=== PATIENT | male | born 1990 | race Caucasian/White ===

== ENCOUNTER 2021-09-13 13:21 | Inpatient (IN) | payer MEDICAID, OTHER, SELFPAY ==
--- NOTE | ~2021-09-13 | CT_ITS ---
EXAMINATION: CT HEAD WITHOUT CONTRAST CLINICAL INFORMATION: New onset psychosis. COMPARISON: None TECHNIQUE: Contiguous axial imaging was performed from the skull base to vertex without intravenous administration of contrast. This CT examination was performed using dose optimization techniques as appropriate, variously including the following: *Automated exposure control *Adjustment of mA and/or kV according to patient size (this includes techniques or standardized protocols for targeted exams where dose is matched to indication/reason for exam; i.e. extremities or head) *Use of iterative reconstruction technique DLP: 929 mGy-cm FINDINGS: There is no evidence of acute intracranial hemorrhage or territorial infarction. No abnormal mass effect or midline shift is seen. Lopez to white matter differentiation is well preserved. No extra-axial fluid collections are identified. The ventricles are normal in size. There is no abnormal attenuation within the brain parenchyma. The osseous structures and soft tissues are normal. Mucus retention cyst present within the left maxillary sinus. Remainder of the paranasal sinuses are clear. Mastoid air cells are pneumatized. CT/CT head/brain wo con IMPRESSION: No acute intracranial pathology.
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
[2021-09-13 13:44] VITALS: BP 137/77; PULSE 88; RESP 18; TEMP 36.6; O2SAT 100; BMI 21.0
[2021-09-13 14:52] LABS: MANUAL DIFF FLAG NO
[2021-09-13 14:58] LABS: Basophils Percent Auto 0.3 % (0-2); Eosinophils Percent Auto 0.1 % (0-4); Hematocrit 42.9 % (42.0-52.0); Hemoglobin 14.3 g/dl (14.0-18.0); Imm Gran Abs Auto 0.02 X10*3/uL (0.00-0.03); Imm Gran Pct Auto 0.2 % (0.0-0.4); Lymphocytes Absolute Auto 1.8 X10*3/uL (1.2-4.9); Lymphocytes Percent Auto 18.3 % (20-40); Mean Corpuscular HGB Conc 33.3 g/dl (31.0-36.0); Mean Corpuscular Hemoglobin 29.2 pg (27.0-33.0); Mean Corpuscular Volume 87.7 fL (80.0-98.0); Mean Platelet Volume 10.8 fL (9.4-12.4); Monocytes Absolute Auto 0.7 X10*3/uL (0.1-1.2); Monocytes Percent Auto 6.5 % (2-11); Neutrophils Absolute Auto 7.5 x10*3/uL (2.0-8.3); Neutrophils Percent Auto 74.6 % (45-73); Platelet Count 367 X10*3/uL (160-400); Red Blood Count 4.89 X10*6/uL (4.60-5.80); Red Cell Distribution Width 12.5 % (11.0-16.0)
[2021-09-13 15:06] LABS: Ethanol < 10 mg/dL
[2021-09-13 15:08] LABS: Alanine Aminotransferase 17 U/L (0-40); Albumin Level 4.9 g/dL (3.5-5.0); Alkaline Phosphatase 60 U/L (39-117); Anion Gap 15 (12-20); Aspartate Amino Transferase 19 U/L (5-37); Bilirubin Direct 0.4 mg/dL (0.0-0.5); Blood Urea Nitrogen 8 mg/dL (9-16); Calcium 9.6 mg/dL (8.4-10.2); Carbon Dioxide 24 mmol/L (22-29); Chloride 107 mmol/L (96-108); Creatinine Clr Calc Pharmacy 104.5; Estimated Glomerular Filt Rate > 60; Glucose Random 109 mg/dL (60-115); Magnesium 2.2 mg/dL (1.6-2.6); Potassium 4.1 mmol/L (3.3-5.1); Sodium 142 mmol/L (135-145); Total Protein 7.7 g/dL (6.5-8.0)
[2021-09-13 15:09] LABS: COVID-19 Test Negative (Negative); IDNOW Serial# 16C4AD1C
--- NOTE | 2021-09-13 16:01 | PC.NURSE ---
pt is blinking and opening eyes to verbal and tactile stimuli, but is not verbally responding to questions. vss, pt resting quietly in bed. phone call from mother looking to speak to pt. asked pt if we had permission to speak with her, but pt declined to answer. took down contact information for mother.
[2021-09-13 16:02] VITALS: BP 129/73; PULSE 105; RESP 18; TEMP 36.9; O2SAT 98
--- NOTE | 2021-09-13 16:50 | PC.NURSE ---
pt spoke w HERI pt reports auditory hallucinations, but declines to tell us what the voices are saying, paranoid, denies SI/HI. spoke briefly w Amador (uncle) on the phone, but Amador was unable to find out anymore information. pt continues to shut down and become selectively mute. pt reports that he wants his belongings and wants to go home.
--- NOTE | 2021-09-13 17:13 | PC.NURSE ---
pt pacing and exit seeking, increased paranoid, security called - pt climbing on tables and attempting to get onto the window sill. pt requesting his belongings and stating that he wants to leave. pt agreed to seeing mother if she wants to come and visit and okayed us speaking with her.
--- NOTE | 2021-09-13 17:19 | PC.NURSE ---
pt continues to try and exit seek.
--- NOTE | 2021-09-13 17:57 | PC.NURSE ---
pt declined po meds, explained to pt that if his behavior escalated that we would be giving medication IM.
[2021-09-13] MEDS: HaloperidoL 5 MG TABLET PO (19:49)
[2021-09-13] MEDS: LORazepam 1 MG TABLET 2 MG PO (19:49)
[2021-09-14 01:28] VITALS: BP 117/94; PULSE 110; RESP 20; TEMP 36.7; O2SAT 97
[2021-09-14 06:17] LABS: Amphetamine Screen Urine Not Detected (Not Detect); Barbiturates, Urine Not Detected (Not Detect); Benzodiazepines Screen Urine Not Detected (Not Detect); Cannabinoid Screen Urine Not Detected (Not Detect); Cocaine Screen Urine Not Detected (Not Detect); Fentanyl, urine Not Detected (Not Detect); Opiate Screen Urine Not Detected (Not Detect); Phencyclidine Screen Urine Not Detected (Not Detect)
--- NOTE | 2021-09-14 07:09 | PC.NURSE ---
Patient took his Haldol 5m po and Ativan 2 mg po at 1949 with repeated attempt with positive effect, patient was assessed by N [facility], with disposition section 12 inpatient bed search, med rec completed/May updated, VSS, behavior unpredictable due to Autistic D/O, will continue to monitor.
[2021-09-14] MEDS: OLANZapine 2.5 MG TABLET PO (08:59)
--- NOTE | 2021-09-14 10:42 | PC.NURSE ---
SPOKE WITH PT RE: GIVING INFORMATION ABOUT HIM TO MOTHER. PT GAVE HIS VERBAL PERMISSION. MOM IS TRISTAN ARANGOEMILY [phone]
[2021-09-14] MEDS: OLANZapine 10 MG TABLET PO ×2 (12:06→22:00)
[2021-09-14 12:13] VITALS: BP 134/83; PULSE 109; RESP 18; TEMP 36.9; O2SAT 98
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
--- NOTE | 2021-09-14 15:59 | PC.NURSE ---
pt is presenting as paranoid with auditory hallucinations, pt sitting on floor in communal rooms, hiding behind surfaces, verbal reassurance given that pt is safe. RN-RN report given.
[2021-09-14 17:06] VITALS: BP 125/84; PULSE 91; RESP 17; TEMP 36.9; O2SAT 97
--- NOTE | 2021-09-14 17:54 | PC.ADMIT ---
Pt admitted from [facility] with a diagnosis of unspecified schizophrenia spectrum and other psychotic disorder and autism spectrum disorder on a conditional voluntary. Pt reports that he has been hearing voices telling him to hurt himself. PT states that he started hearing voices within the last few days. PT states he has never heard voices before. Pt reports that he thinks people are trying to hurt and kill him. PT calm and cooperative with admission process with short responses to questions. PT kept his eyes closed throughout the interview. PT states he is currently experiencing command auditory hallucinations telling him to kill himself, hit himself in the head and that other people are going to hill him, he denies intent to act on the voices. Pt reports poor sleep. Pt denies SI/HI, denies visual hallucinations. PT states he feels safe on the unit and will come to staff if feeling unsafe and for help with the voices. 15 minute safety checks initiated for safety.
[2021-09-14] MEDS: LORazepam 1 MG TABLET PO (22:00)
[2021-09-14 22:18] VITALS: BP 115/72; PULSE 110; RESP 20; TEMP 36.7; O2SAT 96
[2021-09-15 08:04] LABS: Estimated Average Glucose 91 mg/dL; Hemoglobin A1c % 4.8 %
[2021-09-15 08:05] LABS: Alanine Aminotransferase 20 U/L (0-40); Albumin Level 4.6 g/dL (3.5-5.0); Alkaline Phosphatase 61 U/L (39-117); Anion Gap 15 (12-20); Aspartate Amino Transferase 25 U/L (5-37); Bilirubin Total 0.9 mg/dL (0.0-1.0); Blood Urea Nitrogen 10 mg/dL (9-16); Calcium 9.5 mg/dL (8.4-10.2); Carbon Dioxide 25 mmol/L (22-29); Chloride 107 mmol/L (96-108); Cholesterol 158 mg/dL; Creatinine Clr Calc Pharmacy 99.4; Estimated Glomerular Filt Rate > 60; Glucose Fasting 87 mg/dL (60-99); HDL Cholesterol 41 mg/dL; LDL Cholesterol Calculated 104 mg/dl; Potassium 3.7 mmol/L (3.3-5.1); Sodium 143 mmol/L (135-145); Total Protein 7.3 g/dL (6.5-8.0); Triglycerides 68 mg/dL
[2021-09-15 08:27] LABS: Thyroid Stimulating Hormone 0.93 uIU/mL (0.32-4.0)
[2021-09-15] MEDS: OLANZapine 10 MG TABLET PO ×2 (09:48→20:52)
[2021-09-15 09:50] VITALS: RESP 17
--- NOTE | 2021-09-15 11:11 | HO.PSYCHPN ---
Subjective Subjective Date of Service: 09/15/21 Reason For Visit: Paranoia/AH Subjective Notes: Conditional Voluntary Interim History: paranoid, tearful, fearful. wanting to go home Medication Compliance: Yes Side effects from medications: No Attending Groups: No Review of Systems Acute medical concerns: No Medical Review of Systems: unchanged Review of Systems Review of Systems Uncooperative Yes Unobtainable due to mental condition and Unobtainable due to mental status Mental Status Exam Mental Status Exam Narrative: Appearance: casually groomed, fair hygiene in NAD Behavior:cooperative psychomotor: no agitation or retardation noted Speech:clear, normal rate/rhythm/volume, spontaneous Thought process: linear Thought content:hearing voices, not feeling safe although calmer due to medication. Mood: anxious Affect: congruent SI:none HI:none VH/AH: none today Delusions:paranoid delusions of friend trying to kill him Insight/judgment:poor x 2. Memory/cog: alert, oriented x 3. not formally tested. Diagnostics Vital Signs (24Hr): Vital Signs - 24 hr 09/14/21 12:13 09/14/21 17:06 09/14/21 22:18 Temperature 98.4 F 98.4 F 98.0 F Pulse Rate 109 H 91 110 H Respiratory Rate 18 17 20 Blood Pressure 134/83 125/84 115/72 Pulse Oximetry 98 97 96 Oxygen Delivery Method Room Air Room Air Room Air 09/15/21 09:50 Temperature Pulse Rate Respiratory Rate 17 Blood Pressure Pulse Oximetry Oxygen Delivery Method BMI result Body Mass Index 21.0 Labs Results: 09/13/21 14:47 09/15/21 07:25 Labs: Laboratory Results - last 48 hr 09/13/21 09/13/21 09/13/21 14:41 14:41 14:47 WBC 10.0 RBC 4.89 Hgb 14.3 Hct 42.9 MCV 87.7 MCH 29.2 MCHC 33.3 RDW 12.5 Plt Count 367 MPV 10.8 Immature Gran % (Auto) 0.2 Neut % (Auto) 74.6 H Lymph % (Auto) 18.3 L [place] % (Auto) 6.5 Eos % (Auto) 0.1 Baso % (Auto) 0.3 Lymph # (Auto) 1.8 [place] # (Auto) 0.7 Eos # (Auto) 0.0 Baso # (Auto) 0.0 Abs Immat Gran (auto) 0.02 Absolute Neuts (auto) 7.5 Absolute Nucleated RBC 0.000 Nucleated RBC % (auto) 0.0 Sodium Potassium Chloride Carbon Dioxide Anion Gap BUN Creatinine Estim Creat Clear Calc Estimated GFR Random Glucose Fasting Glucose Estimat Average Glucose Hemoglobin A1c % Calcium Magnesium Total Bilirubin Direct Bilirubin AST ALT Alkaline Phosphatase Total Protein Albumin Triglycerides Cholesterol LDL Cholesterol, Calc HDL Cholesterol TSH Urine Opiates Screen Urine Fentanyl Screen Ur Barbiturates Screen Ur Phencyclidine Scrn Ur Amphetamines Screen U Benzodiazepines Scrn Urine Cocaine Screen U Marijuana (THC) Screen Ethyl Alcohol < 10 COVID-19 ([facility]) Negative COVID-19 Clin Com See Note 09/13/21 09/14/21 09/15/21 14:47 05:57 07:25 WBC RBC Hgb Hct MCV MCH MCHC RDW Plt Count MPV Immature Gran % (Auto) Neut % (Auto) Lymph % (Auto) [place] % (Auto) Eos % (Auto) Baso % (Auto) Lymph # (Auto) [place] # (Auto) Eos # (Auto) Baso # (Auto) Abs Immat Gran (auto) Absolute Neuts (auto) Absolute Nucleated RBC Nucleated RBC % (auto) Sodium 142 143 Potassium 4.1 3.7 Chloride 107 107 Carbon Dioxide 24 25 Anion Gap 15 15 BUN 8 L 10 Creatinine 0.97 1.02 Estim Creat Clear Calc 104.5 99.4 Estimated GFR > 60 > 60 Random Glucose 109 Fasting Glucose 87 Estimat Average Glucose Hemoglobin A1c % Calcium 9.6 9.5 Magnesium 2.2 Total Bilirubin 1.0 0.9 Direct Bilirubin 0.4 AST 19 25 ALT 17 20 Alkaline Phosphatase 60 61 Total Protein 7.7 7.3 Albumin 4.9 4.6 Triglycerides 68 Cholesterol 158 LDL Cholesterol, Calc 104 HDL Cholesterol 41 TSH 0.93 Urine Opiates Screen Not Detected Urine Fentanyl Screen Not Detected Ur Barbiturates Screen Not Detected Ur Phencyclidine Scrn Not Detected Ur Amphetamines Screen Not Detected U Benzodiazepines Scrn Not Detected Urine Cocaine Screen Not Detected U Marijuana (THC) Screen Not Detected Ethyl Alcohol COVID-19 ([facility]) COVID-[facility]gery[facility]du Com 09/15/21 07:25 WBC RBC Hgb Hct MCV MCH MCHC RDW Plt Count MPV Immature Gran % (Auto) Neut % (Auto) Lymph % (Auto) [place] % (Auto) Eos % (Auto) Baso % (Auto) Lymph # (Auto) [place] # (Auto) Eos # (Auto) Baso # (Auto) Abs Immat Gran (auto) Absolute Neuts (auto) Absolute Nucleated RBC Nucleated RBC % (auto) Sodium Potassium Chloride Carbon Dioxide Anion Gap BUN Creatinine Estim Creat Clear Calc Estimated GFR Random Glucose Fasting Glucose Estimat Average Glucose 91 Hemoglobin A1c % 4.8 Calcium Magnesium Total Bilirubin Direct Bilirubin AST ALT Alkaline Phosphatase Total Protein Albumin Triglycerides Cholesterol LDL Cholesterol, Calc HDL Cholesterol TSH Urine Opiates Screen Urine Fentanyl Screen Ur Barbiturates Screen Ur Phencyclidine Scrn Ur Amphetamines Screen U Benzodiazepines Scrn Urine Cocaine Screen U Marijuana (THC) Screen Ethyl Alcohol COVID-19 ([facility]) COVID-19 Clin Com Imaging Radiology Impressions: ITS Impressions Head CT 09/14/21 12:51 IMPRESSION: No acute intracranial pathology. Medications Medications Current Medications Acetaminophen (Acetaminophen 325 Mg Tablet) 650 mg PO Q6H PRN PRN Reason: Headache/Pain Mild Scale (1-3) Al Hydroxide/Mg Hydroxide (Magnesium Hydrox/Alum Hydrox 30 Ml Oral.Susp) 30 ml PO Q6H PRN PRN Reason: Heartburn/Nausea Lorazepam (Lorazepam 1 Mg Tablet) 1 mg PO Q6H PRN PRN Reason: anxiety Last Admin: 09/14/21 22:00 Dose: 1 mg Magnesium Hydroxide (Milk Of Magnesia 30 Ml Oral.Susp) 30 ml PO DAILY PRN PRN Reason: Constipation Olanzapine (Olanzapine 10 Mg Tablet) 10 mg PO BID AIDA Last Admin: 09/15/21 09:48 Dose: 10 mg Olanzapine (Olanzapine 5 Mg Tablet) 5 mg PO Q6H PRN PRN Reason: agitation Trazodone HCl (Trazodone Hcl 50 Mg Tablet) 50 mg PO BEDTIME PRN PRN Reason: Insomnia Allergies Allergies Allergy/AdvReac Type Severity Reaction Status Date / Time No Known Allergies Allergy Verified 09/13/21 19:39 Assessment & Plan Assessment & Plan (1) Psychosis: Status: Acute Code(s): F29 - Unspecified psychosis not due to a substance or known physiological condition Plan Mr. Henriquez is a 31 year-old male with hx of Autism Disorder- mostly on concerta for ADHD. Hx of explosive behaviors as child but this have resolved since he was 17 years old. He lives with his mother. In the past 2 months he started to experience a combination of AH, paranoid delusions of friend trying to him and able to read his thoughts. Delusions and psychosis have increase to the point that in last week pt has hold a knife to his neck twice stating he can't take the voices any more. He has also banged his head against the wall trying to stop the voices day prior to being brought to the hospital and he has grabbed his mother's shoulder, shaking her telling her that she has been brain washed by friend who he belives is trying to kill him. Pt does have significant family hx of psychiatric illness including psychosis. However, given that this is first episode, will add head CT as medical work up. His utox is negative and both pt and family denied that pt has hx of substance use. PLAN head CT is NORMAL CV 15 min checks Olanzapine to 10mg po BID, Stop concerta as at this point stimulant will worsen psychosis. I spent __15____ minutes with the patient and/or on the patient floor today, greater than?50% of which was spent counseling/coordinating care. Reason for contiued inpatient stay Substantial Risk for: harm to self, inability to function and med/psych decompensation
[2021-09-15] MEDS: OLANZapine 5 MG TABLET PO (13:14)
[2021-09-15] MEDS: LORazepam 1 MG TABLET PO ×2 (13:15→20:52)
[2021-09-15] MEDS: traZODone HCL 50 MG TABLET PO (20:52)
[2021-09-16 08:51] VITALS: BP 151/63; PULSE 97; RESP 18; TEMP 36.3; O2SAT 98
[2021-09-16] MEDS: OLANZapine 10 MG TABLET PO ×2 (08:54→20:21)
[2021-09-16] MEDS: LORazepam 1 MG TABLET PO (10:15)
--- NOTE | 2021-09-16 12:11 | HO.PSYCHPN ---
Subjective Subjective Date of Service: 09/16/21 Reason For Visit: Paranoia/AH Interim History: paranoid, tearful, fearful. wanting to go home Medication Compliance: Yes Side effects from medications: No Review of Systems Acute medical concerns: No Review of Systems Review of Systems Uncooperative Yes Unobtainable due to mental condition and Unobtainable due to mental status Mental Status Exam Mental Status Exam Narrative: Appearance: casually groomed, fair hygiene in NAD Behavior:cooperative psychomotor: no agitation or retardation noted Speech:clear, normal rate/rhythm/volume, spontaneous Thought process: linear Thought content: hearing voices, not feeling safe although calmer due to medication. Mood: anxious Affect: congruent SI:none HI:none VH/AH: none today Delusions:paranoid delusions of friend trying to kill him Insight/judgment:poor x 2. Memory/cog: alert, oriented x 3. not formally tested. Diagnostics Vital Signs (24Hr): Vital Signs - 24 hr 09/16/21 08:51 Temperature 97.4 F Pulse Rate 97 Respiratory Rate 18 Blood Pressure 151/63 H Pulse Oximetry 98 Oxygen Delivery Method Room Air BMI result Body Mass Index 21.0 Labs Results: 09/13/21 14:47 09/15/21 07:25 Labs: Laboratory Results - last 48 hr 09/15/21 09/15/21 07:25 07:25 Sodium 143 Potassium 3.7 Chloride 107 Carbon Dioxide 25 Anion Gap 15 BUN 10 Creatinine 1.02 Estim Creat Clear Calc 99.4 Estimated GFR > 60 Fasting Glucose 87 Estimat Average Glucose 91 Hemoglobin A1c % 4.8 Calcium 9.5 Total Bilirubin 0.9 AST 25 ALT 20 Alkaline Phosphatase 61 Total Protein 7.3 Albumin 4.6 Triglycerides 68 Cholesterol 158 LDL Cholesterol, Calc 104 HDL Cholesterol 41 TSH 0.93 Imaging Radiology Impressions: ITS Impressions Head CT 09/14/21 12:51 IMPRESSION: No acute intracranial pathology. Medications Medications Current Medications Acetaminophen (Acetaminophen 325 Mg Tablet) 650 mg PO Q6H PRN PRN Reason: Headache/Pain Mild Scale (1-3) Al Hydroxide/Mg Hydroxide (Magnesium Hydrox/Alum Hydrox 30 Ml Oral.Susp) 30 ml PO Q6H PRN PRN Reason: Heartburn/Nausea Lorazepam (Lorazepam 1 Mg Tablet) 1 mg PO Q6H PRN PRN Reason: anxiety Last Admin: 06/26/22 10:15 Dose: 1 mg Magnesium Hydroxide (Milk Of Magnesia 30 Ml Oral.Susp) 30 ml PO DAILY PRN PRN Reason: Constipation Olanzapine (Olanzapine 10 Mg Tablet) 10 mg PO BID AIDA Last Admin: 09/16/21 08:54 Dose: 10 mg Olanzapine (Olanzapine 5 Mg Tablet) 5 mg PO Q6H PRN PRN Reason: agitation Last Admin: 09/15/21 13:14 Dose: 5 mg Trazodone HCl (Trazodone Hcl 50 Mg Tablet) 50 mg PO BEDTIME PRN PRN Reason: Insomnia Last Admin: 09/15/21 20:52 Dose: 50 mg Allergies Allergies Allergy/AdvReac Type Severity Reaction Status Date / Time No Known Allergies Allergy Verified 09/13/21 19:39 Assessment & Plan Assessment & Plan (1) Psychosis: Status: Acute Code(s): F29 - Unspecified psychosis not due to a substance or known physiological condition Plan Mr. Henriquez is a 31 year-old male with hx of Autism Disorder- mostly on concerta for ADHD. Hx of explosive behaviors as child but this have resolved since he was 17 years old. He lives with his mother. In the past 2 months he started to experience a combination of AH, paranoid delusions of friend trying to him and able to read his thoughts. Delusions and psychosis have increase to the point that in last week pt has hold a knife to his neck twice stating he can't take the voices any more. He has also banged his head against the wall trying to stop the voices day prior to being brought to the hospital and he has grabbed his mother's shoulder, shaking her telling her that she has been brain washed by friend who he belives is trying to kill him. Pt does have significant family hx of psychiatric illness including psychosis. However, given that this is first episode, will add head CT as medical work up. His utox is negative and both pt and family denied that pt has hx of substance use. PLAN continue current treatment plan head CT is NORMAL CV 15 min checks Olanzapine to 10mg po BID, Stop concerta as at this point stimulant will worsen psychosis. I spent ____15__ minutes with the patient and/or on the patient floor today, greater than?50% of which was spent counseling/coordinating care. Reason for contiued inpatient stay Substantial Risk for: harm to self, inability to function and rapid decompensation
[2021-09-16 20:05] VITALS: BP 141/82; PULSE 128; RESP 16; TEMP 36.6; O2SAT 97
[2021-09-17] MEDS: OLANZapine 10 MG TABLET PO (09:26)
[2021-09-17 10:18] LABS: Folate 15.5 ng/mL (> or = 4.0); Vitamin B12 < 146 pg/mL (200-900)
--- NOTE | 2021-09-17 17:45 | P.PNPSI_ITS ---
Subjective Subjective Date of Service: 09/17/21 Reason For Visit: Paranoia/AH Subjective Notes: Jamil Warning and Conditional Voluntary Healthcare Proxy: No Guardianship: No Medical Problems Affecting Mental Status: No Interim History: Patient seen and discussed with team. Patient evaluated today and upon interview pt reports Im doing okay but I was told to tell you if i heard voices, sometimes I do, they tell me bad things, i.e. to say bad words. Says the voices bother him, denies being able to ignore them, everywhere I go it seems to follow. Says the voices are lower on medication. Says he is depressed because I miss my family. Denies SI/SIB. Still feeling paranoid. Has fixed believe that me and my family are gonna , thinks a darwin he knows from college is after him. Sleep is not really good, feeling anxious. Energy is low. He is tearful, says he is afraid im gonna tonight. Will increase zyprexa to 15 mg BID Medication Compliance: Yes Side effects from medications: No Attending Groups: No Review of Systems Acute medical concerns: No Medical Review of Systems: unchanged Review of Systems Review of Systems CVS: No c/o chest pain, palpitations, no SOB CONSTRUCTION FLAGGER: No c/o dizziness, headache GI: No c/o Nausea, Vomiting, diarrhea, constipation or heartburn Mental Status Exam Mental Status Exam Narrative: Appearance: casually groomed, fair hygiene in NAD Behavior:cooperative psychomotor: no agitation or retardation noted Speech:clear, normal rate/rhythm/volume, spontaneous Thought process: linear Thought content: hearing voices, not feeling safe although calmer due to medication. Mood: okay Affect: congruent SI:none HI:none VH/AH: none today Delusions:paranoid delusions of friend trying to kill him Insight/judgment:poor x 2. Memory/cog: alert, oriented x 3. not formally tested. Diagnostics Vital Signs (24Hr): Vital Signs - 24 hr 09/16/21 20:05 Temperature 98 F Pulse Rate 128 H Respiratory Rate 16 Blood Pressure 141/82 H Pulse Oximetry 97 Oxygen Delivery Method Room Air BMI result Body Mass Index 21.0 Labs Results: 09/13/21 14:47 09/15/21 07:25 Labs: Laboratory Results - last 48 hr 09/15/21 07:25 Vitamin B12 < 146 L Folate 15.5 Imaging Radiology Impressions: ITS Impressions Head CT 09/14/21 12:51 IMPRESSION: No acute intracranial pathology. Medications Medications Current Medications Acetaminophen (Acetaminophen 325 Mg Tablet) 650 mg PO Q6H PRN PRN Reason: Headache/Pain Mild Scale (1-3) Al Hydroxide/Mg Hydroxide (Magnesium Hydrox/Alum Hydrox 30 Ml Oral.Susp) 30 ml PO Q6H PRN PRN Reason: Heartburn/Nausea Lorazepam (Lorazepam 1 Mg Tablet) 1 mg PO Q6H PRN PRN Reason: anxiety Last Admin: 09/16/21 10:15 Dose: 1 mg Magnesium Hydroxide (Milk Of Magnesia 30 Ml Oral.Susp) 30 ml PO DAILY PRN PRN Reason: Constipation Olanzapine (Olanzapine 10 Mg Tablet) 10 mg PO BID AIDA Last Admin: 09/17/21 09:26 Dose: 10 mg Olanzapine (Olanzapine 5 Mg Tablet) 5 mg PO Q6H PRN PRN Reason: agitation Last Admin: 09/15/21 13:14 Dose: 5 mg Trazodone HCl (Trazodone Hcl 50 Mg Tablet) 50 mg PO BEDTIME PRN PRN Reason: Insomnia Last Admin: 09/15/21 20:52 Dose: 50 mg Allergies Allergies Allergy/AdvReac Type Severity Reaction Status Date / Time No Known Allergies Allergy Verified 09/13/21 19:39 Assessment & Plan Assessment & Plan (1) Psychosis: Status: Acute Code(s): F29 - Unspecified psychosis not due to a substance or known physiological condition Plan Mr. Henriquez is a 31 year-old male with hx of Autism Disorder- mostly on concerta for ADHD. Hx of explosive behaviors as child but this have resolved since he was 17 years old. He lives with his mother. In the past 2 months he started to experience a combination of AH, paranoid delusions of friend trying to him and able to read his thoughts. Delusions and psychosis have increase to the point that in last week pt has hold a knife to his neck twice stating he can't take the voices any more. He has also banged his head against the wall trying to stop the voices day prior to being brought to the hospital and he has grabbed his mother's shoulder, shaking her telling her that she has been brain washed by friend who he belives is trying to kill him. Pt does have significant family hx of psychiatric illness including psychosis. However, given that this is first episode, will add head CT as medical work up. His utox is negative and both pt and family denied that pt has hx of substance use. PLAN continue current treatment plan head CT is NORMAL CV 15 min checks Olanzapine to 10mg po BID, Stop concerta as at this point stimulant will worsen psychosis. 09/17: increase zyprexa to 15 mg BID for psychotic and delusional thought process I spent minutes with the patient and/or on the patient floor today, greater than?50% of which was spent counseling/coordinating care. Patient educated on: medication risk/benefits Reason for contiued inpatient stay Substantial Risk for: inability to function, rapid decompensation and med/psych decompensation
[2021-09-17] MEDS: OLANZapine 5 MG TABLET PO (17:57)
--- NOTE | 2021-09-17 18:02 | PC.NURSE ---
Spoke with patient, pt stated the voices are telling me to say bad things/ said they will kill me if I talk about someone. He feels that the medication is helping somewhat, experiencing some dizziness but no headache or other side effects. Pt stated I'm scared about what the voices could do. The voices are far away. Pt also stated I'm scared I'll be here too long and I'll here. The day before I came in here, I saw a laser pointer in the room I was in, but I'm not seeing it anymore. I thought it was a gun. I feel like there's someone after me and I feel like I'm going to . RN administered 5mg PRN Zyprexa, pending effects. RN provided support and therapeutic communication.
[2021-09-17] MEDS: OLANZapine 7.5 MG TABLET 15 MG PO (21:42)
--- NOTE | 2021-09-18 | ECG_ITS ---
Test Reason : PALPITATIONS Blood Pressure : / mmHG Vent. Rate : 093 BPM Atrial Rate : 093 BPM P-R Int : 160 ms QRS Dur : 080 ms QT Int : 334 ms P-R-T Axes : 053 023 044 degrees QTc Int : 415 ms Normal sinus rhythm Normal ECG No previous ECGs available Referred By: Shara Fraser Electronically Signed By:ABDIEL SANDERS
[2021-09-18 08:45] VITALS: BP 130/90; PULSE 104; RESP 18; TEMP 36.2; O2SAT 98
[2021-09-18] MEDS: LORazepam 1 MG TABLET PO (08:51)
[2021-09-18] MEDS: OLANZapine 7.5 MG TABLET 15 MG PO ×2 (08:51→21:11)
--- NOTE | 2021-09-18 11:42 | P.PNPSI_ITS ---
Subjective Subjective Date of Service: 09/18/21 Reason For Visit: Paranoia/AH Subjective Notes: Conditional Voluntary Interim History: Patient seen and discussed with team. Pt continues to report that he hears voices. He denies SI/HI. Per mother, pt called her last night to tell her that there were snipers on the roof of the hospital. Pt continues to believe that someone is trying to kill him or his mother and is worried about his safety. Pt slept through the night. He is less fearful, and less hypervigilant but delusions and AH continue. Medication Compliance: Yes Review of Systems Review of Systems CVS: No c/o chest pain, palpitations, no SOB MACHINE SOLE LEVELER: No c/o dizziness, headache GI: No c/o Nausea, Vomiting, diarrhea, constipation or heartburn Yes Unobtainable due to mental condition and Unobtainable due to mental status Mental Status Exam Mental Status Exam Narrative: Appearance: casually groomed, fair hygiene in NAD Behavior:cooperative psychomotor: no agitation or retardation noted Speech:clear, normal rate/rhythm/volume, spontaneous Thought process: linear Thought content: hearing voices, not feeling safe although calmer due to medication. Mood: okay Affect: congruent SI:none HI:none VH/AH: + AH, +VH saw a tipping machine operator on roof of hospital last night. Delusions:paranoid delusions of friend trying to kill him Insight/judgment:poor x 2. Memory/cog: alert, oriented x 3. not formally tested. Diagnostics Vital Signs (24Hr): Vital Signs - 24 hr 09/18/21 08:45 Temperature 97.2 F Pulse Rate 104 H Respiratory Rate 18 Blood Pressure 130/90 H Pulse Oximetry 98 Oxygen Delivery Method Room Air BMI result Body Mass Index 21.0 Labs Results: 09/13/21 14:47 09/15/21 07:25 Labs: Laboratory Results - last 48 hr 09/15/21 07:25 Vitamin B12 < 146 L Folate 15.5 Imaging Radiology Impressions: ITS Impressions Head CT 09/14/21 12:51 IMPRESSION: No acute intracranial pathology. Medications Medications Current Medications Acetaminophen (Acetaminophen 325 Mg Tablet) 650 mg PO Q6H PRN PRN Reason: Headache/Pain Mild Scale (1-3) Al Hydroxide/Mg Hydroxide (Magnesium Hydrox/Alum Hydrox 30 Ml Oral.Susp) 30 ml PO Q6H PRN PRN Reason: Heartburn/Nausea Lorazepam (Lorazepam 1 Mg Tablet) 1 mg PO Q6H PRN PRN Reason: anxiety Last Admin: 09/18/21 08:51 Dose: 1 mg Magnesium Hydroxide (Milk Of Magnesia 30 Ml Oral.Susp) 30 ml PO DAILY PRN PRN Reason: Constipation Olanzapine (Olanzapine 5 Mg Tablet) 5 mg PO Q6H PRN PRN Reason: agitation Last Admin: 09/18/21 17:06 Dose: 5 mg Olanzapine (Olanzapine 7.5 Mg Tablet) 15 mg PO BID AIDA Last Admin: 09/18/21 08:51 Dose: 15 mg Trazodone HCl (Trazodone Hcl 50 Mg Tablet) 50 mg PO BEDTIME PRN PRN Reason: Insomnia Last Admin: 09/15/21 20:52 Dose: 50 mg Allergies Allergies Allergy/AdvReac Type Severity Reaction Status Date / Time No Known Allergies Allergy Verified 09/13/21 19:39 Assessment & Plan Assessment & Plan (1) Psychosis: Status: Acute Code(s): F29 - Unspecified psychosis not due to a substance or known physiological condition Plan Mr. Henriquez is a 31 year-old male with hx of Autism Disorder- mostly on concerta for ADHD. Hx of explosive behaviors as child but this have resolved since he was 17 years old. He lives with his mother. In the past 2 months he started to experience a combination of AH, paranoid delusions of friend trying to him and able to read his thoughts. Delusions and psychosis have increase to the point that in last week pt has hold a knife to his neck twice stating he can't take the voices any more. He has also banged his head against the wall trying to stop the voices day prior to being brought to the hospital and he has grabbed his mother's shoulder, shaking her telling her that she has been brain washed by friend who he belives is trying to kill him. Pt does have significant family hx of psychiatric illness including psychosis. However, given that this is first episode, will add head CT as medical work up. His utox is negative and both pt and family denied that pt has hx of substance use. PLAN continue current treatment plan head CT is NORMAL CV 15 min checks Olanzapine to 10mg po BID, Stop concerta as at this point stimulant will worsen psychosis. 09/17: increase zyprexa to 15 mg BID for psychotic and delusional thought process 09/18 continue zyprexa 15mg po BID I spent ___25___ minutes with the patient and/or on the patient floor today, greater than?50% of which was spent counseling/coordinating care. Reason for contiued inpatient stay Substantial Risk for: harm to self and inability to function
[2021-09-18] MEDS: OLANZapine 5 MG TABLET PO (17:06)
[2021-09-18 21:16] VITALS: BP 116/63; PULSE 92; TEMP 36.8; O2SAT 98
[2021-09-19 06:00] VITALS: BP 126/75; PULSE 72; RESP 18; TEMP 36.4; O2SAT 98
[2021-09-19] MEDS: OLANZapine 7.5 MG TABLET 15 MG PO ×2 (09:00→22:02)
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
[2021-09-19] MEDS: clonazePAM 0.5 MG TABLET PO ×2 (12:21→22:02)
[2021-09-19] MEDS: risperiDONE 1 MG TABLET PO ×2 (12:22→22:02)
[2021-09-19 22:00] VITALS: BP 112/84; PULSE 100; TEMP 36.3; O2SAT 100
[2021-09-19] MEDS: traZODone HCL 100 MG TABLET PO (22:03)
[2021-09-20 06:00] VITALS: BP 136/82; PULSE 94; RESP 18; TEMP 36.6; O2SAT 99
[2021-09-20 07:00] VITALS: BMI 30.2
[2021-09-20] MEDS: risperiDONE 1 MG TABLET PO ×2 (08:29→20:32)
[2021-09-20] MEDS: clonazePAM 0.5 MG TABLET PO ×2 (08:29→20:32)
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
[2021-09-20] MEDS: Cyanocobalamin (Vitamin B-12) 1,000 MCG TABLET 1000 MCG PO (13:42)
[2021-09-20 18:00] VITALS: BP 110/81; PULSE 108; TEMP 36.6; O2SAT 99
[2021-09-20] MEDS: traZODone HCL 100 MG TABLET PO (20:32)
[2021-09-20] MEDS: OLANZapine 7.5 MG TABLET 15 MG PO (20:32)
[2021-09-21 08:39] VITALS: BP 119/65; PULSE 107; RESP 17; TEMP 36.7; O2SAT 99
[2021-09-21] MEDS: Cyanocobalamin (Vitamin B-12) 1,000 MCG TABLET 1000 MCG PO (08:49)
[2021-09-21] MEDS: clonazePAM 0.5 MG TABLET PO ×2 (08:49→22:08)
[2021-09-21] MEDS: risperiDONE 1 MG TABLET PO ×2 (08:49→22:09)
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
[2021-09-21] MEDS: Acetaminophen 325 MG TABLET 650 MG PO (19:40)
[2021-09-21 20:42] VITALS: BP 116/62; PULSE 117; RESP 18; TEMP 36.8; O2SAT 97
[2021-09-21] MEDS: traZODone HCL 100 MG TABLET PO (22:08)
[2021-09-21] MEDS: OLANZapine 7.5 MG TABLET 15 MG PO (22:10)
[2021-09-22 08:01] VITALS: BP 125/74; PULSE 106; RESP 18; TEMP 36.6; O2SAT 100
[2021-09-22] MEDS: risperiDONE 1 MG TABLET PO ×2 (08:02→20:01)
[2021-09-22] MEDS: clonazePAM 0.5 MG TABLET PO ×2 (08:02→20:01)
[2021-09-22] MEDS: Cyanocobalamin (Vitamin B-12) 1,000 MCG TABLET 1000 MCG PO (08:02)
[2021-09-22 18:00] VITALS: BP 111/76; PULSE 138; RESP 18; TEMP 36.4; O2SAT 98
[2021-09-22] MEDS: OLANZapine 7.5 MG TABLET 15 MG PO (20:01)
[2021-09-22] MEDS: traZODone HCL 100 MG TABLET PO (20:01)
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
[2021-09-23 07:56] VITALS: BP 153/85; PULSE 108; RESP 18; TEMP 36.7; O2SAT 99
[2021-09-23] MEDS: Cyanocobalamin (Vitamin B-12) 1,000 MCG TABLET 1000 MCG PO (08:00)
[2021-09-23] MEDS: risperiDONE 1 MG TABLET PO ×2 (08:00→20:14)
[2021-09-23] MEDS: clonazePAM 0.5 MG TABLET PO ×2 (08:00→20:15)
--- NOTE | 2021-09-23 11:51 | HO.PSYCHPN ---
Subjective Subjective Date of Service: 09/23/21 Reason For Visit: Paranoia/AH Subjective Notes: Jamil Warning Interim History: Patient seen and discussed with team. Patient evaluated today and upon interview he says he is Alright, his mom visited, went well. Denies bothersome thoughts. Denies depression or anxiety. Denies AH. Sleep is okay. Feels safe. Says his fixed delusional belief that there is someone after him is not bothering me as much, it only worried me when i was hearing voices. Will start to taper off zyprexa, as pt appears to be responding to risperdal, able to reality test. In the milieu, patient is safe and visible. Medication Compliance: Yes Side effects from medications: No Attending Groups: No Review of Systems Acute medical concerns: No Medical Review of Systems: unchanged Mental Status Exam Mental Status Exam Narrative: Appearance: casually groomed, fair hygiene in NAD Behavior:cooperative psychomotor: no agitation or retardation noted Speech:clear, normal rate/rhythm/volume, spontaneous Thought process: linear Thought content: hearing voices, not feeling safe although calmer due to medication. Mood: okay Affect: calmer today, not in distress SI:none HI:none VH/AH: Denies AH telling him he is being killed. Delusions: fixed paranoid delusions of friend trying to kill him Insight/judgment:poor x 2. Memory/cog: alert, oriented x 3. not formally tested. Diagnostics Vital Signs (24Hr): Vital Signs - 24 hr 09/22/21 18:00 09/23/21 07:56 Temperature 97.5 F 98.0 F Pulse Rate 138 H 108 H Respiratory Rate 18 18 Blood Pressure 111/76 153/85 H Pulse Oximetry 98 99 Oxygen Delivery Method Room Air Room Air BMI result Body Mass Index 30.2 Labs Results: 09/13/21 14:47 09/15/21 07:25 Imaging Radiology Impressions: ITS Impressions Head CT 09/14/21 12:51 IMPRESSION: No acute intracranial pathology. Medications Medications Current Medications Acetaminophen (Acetaminophen 325 Mg Tablet) 650 mg PO Q6H PRN PRN Reason: Headache/Pain Mild Scale (1-3) Last Admin: 09/21/21 19:40 Dose: 650 mg Al Hydroxide/Mg Hydroxide (Magnesium Hydrox/Alum Hydrox 30 Ml Oral.Susp) 30 ml PO Q6H PRN PRN Reason: Heartburn/Nausea Clonazepam (Clonazepam 0.5 Mg Tablet) 0.5 mg PO BID [facility] Last Admin: 09/23/21 08:00 Dose: 0.5 mg Cyanocobalamin (Cyanocobalamin (Vitamin B-12) 1,000 Mcg Tablet) 1,000 mcg PO DAILY [facility] Last Admin: 09/23/21 08:00 Dose: 1,000 mcg Lorazepam (Lorazepam 1 Mg Tablet) 1 mg PO Q6H PRN PRN Reason: anxiety Last Admin: 09/18/21 08:51 Dose: 1 mg Magnesium Hydroxide (Milk Of Magnesia 30 Ml Oral.Susp) 30 ml PO DAILY PRN PRN Reason: Constipation Olanzapine (Olanzapine 5 Mg Tablet) 5 mg PO Q6H PRN PRN Reason: agitation Last Admin: 09/18/21 17:06 Dose: 5 mg Olanzapine (Olanzapine 7.5 Mg Tablet) 15 mg PO BEDTIME [facility] Last Admin: 09/22/21 20:01 Dose: 15 mg Risperidone (Risperidone 1 Mg Tablet) 1 mg PO BID [facility] Last Admin: 09/23/21 08:00 Dose: 1 mg Trazodone HCl (Trazodone Hcl 100 Mg Tablet) 100 mg PO BEDTIME [facility] Last Admin: 09/22/21 20:01 Dose: 100 mg Trazodone HCl (Trazodone Hcl 50 Mg Tablet) 50 mg PO BEDTIME PRN PRN Reason: sleep Allergies Allergies Allergy/AdvReac Type Severity Reaction Status Date / Time No Known Allergies Allergy Verified 09/13/21 19:39 Assessment & Plan Assessment & Plan (1) Psychosis: Status: Acute Code(s): F29 - Unspecified psychosis not due to a substance or known physiological condition Plan Mr. Henriquez is a 31 year-old male with hx of Autism Disorder- mostly on concerta for ADHD. Hx of explosive behaviors as child but this have resolved since he was 17 years old. He lives with his mother. In the past 2 months he started to experience a combination of AH, paranoid delusions of friend trying to him and able to read his thoughts. Delusions and psychosis have increase to the point that in last week pt has hold a knife to his neck twice stating he can't take the voices any more. He has also banged his head against the wall trying to stop the voices day prior to being brought to the hospital and he has grabbed his mother's shoulder, shaking her telling her that she has been brain washed by friend who he belives is trying to kill him. Pt does have significant family hx of psychiatric illness including psychosis. However, given that this is first episode, will add head CT as medical work up. His utox is negative and both pt and family denied that pt has hx of substance use. PLAN continue current treatment plan head CT is NORMAL CV 15 min checks Olanzapine to 10mg po BID, Stop concerta as at this point stimulant will worsen psychosis. 09/17: increase zyprexa to 15 mg BID for psychotic and delusional thought process 09/18 continue zyprexa 15mg po BID 09/19, will switch to risperidone as minimal improvement with olanzapine. start risperidone 1 mg po BID, continue olanzapine 15mg po qhs. 09/20 continue current medications. 09/21 continue current medications, pt is now on risperdal 1 mg BID, pt now denies AH, continues to endorse paranoid delusion 09/22 Pt reports benefit on risperdal, no med changes, pt is delusional but denies AH and is in behavioral control, sleeping 09/23 decrease zyprexa to 10 mg QHS to cross taper with risperdal I spent minutes with the patient and/or on the patient floor today, greater than?50% of which was spent counseling/coordinating care. Patient educated on: medication risk/benefits Reason for contiued inpatient stay Substantial Risk for: med/psych decompensation
[2021-09-23 20:10] VITALS: BP 121/69; PULSE 108; RESP 18; TEMP 36.6; O2SAT 97
[2021-09-23] MEDS: OLANZapine 10 MG TABLET PO (20:15)
[2021-09-23] MEDS: traZODone HCL 100 MG TABLET PO (20:15)
[2021-09-24 08:00] VITALS: BP 126/65; PULSE 95; RESP 18; TEMP 36.7; O2SAT 95
[2021-09-24] MEDS: Cyanocobalamin (Vitamin B-12) 1,000 MCG TABLET 1000 MCG PO (08:25)
[2021-09-24] MEDS: risperiDONE 1 MG TABLET PO ×2 (08:25→21:01)
[2021-09-24] MEDS: clonazePAM 0.5 MG TABLET PO ×2 (08:25→21:01)
[2021-09-24 20:55] VITALS: BP 121/78; RESP 16; TEMP 36.4; O2SAT 98
[2021-09-24] MEDS: OLANZapine 5 MG TABLET PO (21:01)
[2021-09-24] MEDS: traZODone HCL 100 MG TABLET PO (21:01)
--- NOTE | 2021-09-24 22:42 | HO.PSYCHPN ---
Subjective Subjective Date of Service: 09/24/21 Reason For Visit: Paranoia/AH Subjective Notes: Jamil Warning Interim History: Patient seen and discussed with team. Patient evaluated today and upon interview pt says he is doing good. His mom is visiting, both pt and mom asked that she be included in interview. Per pt's mom, he was briefly on risperdal when he was younger for aggression. Mom is concerned with wt gain and says his concerta helped with his eating. She reports she does still see some paranoia, as pt is hypervigilant, worrying about his mom and brother?s safety, still thinks there was someone who [facility]. However, she also says that pt seems one hundred percent better than he was on admission. Per pt, he denies paranoia, says he is more worried im not gonna be able to go home. In the milieu, patient is safe and visible. Says he feels safe. Medication Compliance: Yes Side effects from medications: No Attending Groups: Intermittent Review of Systems Acute medical concerns: No Medical Review of Systems: unchanged Mental Status Exam Mental Status Exam Narrative: Appearance: casually groomed, fair hygiene in NAD Behavior:cooperative psychomotor: no agitation or retardation noted Speech:clear, normal rate/rhythm/volume, spontaneous Thought process: linear Thought content: hearing voices, not feeling safe although calmer due to medication. Mood: okay Affect: calmer today, not in distress SI:none HI:none VH/AH: Denies AH telling him he is being killed. Delusions: fixed paranoid delusions of friend trying to kill him Insight/judgment:poor x 2. Memory/cog: alert, oriented x 3. not formally tested. Diagnostics Vital Signs (24Hr): Vital Signs - 24 hr 09/24/21 20:55 Temperature 97.6 F Respiratory Rate 16 Blood Pressure 121/78 Pulse Oximetry 98 Oxygen Delivery Method Room Air BMI result Body Mass Index 30.2 Labs Results: 09/13/21 14:47 09/15/21 07:25 Imaging Radiology Impressions: ITS Impressions Head CT 09/14/21 12:51 IMPRESSION: No acute intracranial pathology. Medications Medications Current Medications Acetaminophen (Acetaminophen 325 Mg Tablet) 650 mg PO Q6H PRN PRN Reason: Headache/Pain Mild Scale (1-3) Last Admin: 09/21/21 19:40 Dose: 650 mg Al Hydroxide/Mg Hydroxide (Magnesium Hydrox/Alum Hydrox 30 Ml Oral.Susp) 30 ml PO Q6H PRN PRN Reason: Heartburn/Nausea Clonazepam (Clonazepam 0.5 Mg Tablet) 0.5 mg PO BID [facility] Last Admin: 09/25/21 08:22 Dose: 0.5 mg Cyanocobalamin (Cyanocobalamin (Vitamin B-12) 1,000 Mcg Tablet) 1,000 mcg PO DAILY [facility] Last Admin: 09/25/21 08:22 Dose: 1,000 mcg Magnesium Hydroxide (Milk Of Magnesia 30 Ml Oral.Susp) 30 ml PO DAILY PRN PRN Reason: Constipation Olanzapine (Olanzapine 5 Mg Tablet) 5 mg PO Q6H PRN PRN Reason: agitation Last Admin: 09/18/21 17:06 Dose: 5 mg Olanzapine (Olanzapine 5 Mg Tablet) 5 mg PO BEDTIME [facility] Last Admin: 09/24/21 21:01 Dose: 5 mg Risperidone (Risperidone 1 Mg Tablet) 1 mg PO BID [facility] Last Admin: 09/25/21 08:22 Dose: 1 mg Trazodone HCl (Trazodone Hcl 100 Mg Tablet) 100 mg PO BEDTIME [facility] Last Admin: 09/24/21 21:01 Dose: 100 mg Trazodone HCl (Trazodone Hcl 50 Mg Tablet) 50 mg PO BEDTIME PRN PRN Reason: sleep Allergies Allergies Allergy/AdvReac Type Severity Reaction Status Date / Time No Known Allergies Allergy Verified 09/13/21 19:39 Assessment & Plan Assessment & Plan (1) Psychosis: Status: Acute Code(s): F29 - Unspecified psychosis not due to a substance or known physiological condition Plan Mr. Henriquez is a 31 year-old male with hx of Autism Disorder- mostly on concerta for ADHD. Hx of explosive behaviors as child but this have resolved since he was 17 years old. He lives with his mother. In the past 2 months he started to experience a combination of AH, paranoid delusions of friend trying to him and able to read his thoughts. Delusions and psychosis have increase to the point that in last week pt has hold a knife to his neck twice stating he can't take the voices any more. He has also banged his head against the wall trying to stop the voices day prior to being brought to the hospital and he has grabbed his mother's shoulder, shaking her telling her that she has been brain washed by friend who he belives is trying to kill him. Pt does have significant family hx of psychiatric illness including psychosis. However, given that this is first episode, will add head CT as medical work up. His utox is negative and both pt and family denied that pt has hx of substance use. PLAN continue current treatment plan head CT is NORMAL CV 15 min checks Olanzapine to 10mg po BID, Stop concerta as at this point stimulant will worsen psychosis. 09/17: increase zyprexa to 15 mg BID for psychotic and delusional thought process 09/18 continue zyprexa 15mg po BID 09/19, will switch to risperidone as minimal improvement with olanzapine. start risperidone 1 mg po BID, continue olanzapine 15mg po qhs. 09/20 continue current medications. 09/21 continue current medications, pt is now on risperdal 1 mg BID, pt now denies AH, continues to endorse paranoid delusion 09/22 Pt reports benefit on risperdal, no med changes, pt is delusional but denies AH and is in behavioral control, sleeping 09/23 decrease zyprexa to 10 mg QHS to cross taper with risperdal 09/24 decrease zyprexa to 5 mg QHS and monitor for AH I spent minutes with the patient and/or on the patient floor today, greater than?50% of which was spent counseling/coordinating care. Patient educated on: medication risk/benefits Reason for contiued inpatient stay Substantial Risk for: inability to function, rapid decompensation and med/psych decompensation
[2021-09-25 06:00] VITALS: BP 126/74; PULSE 80; RESP 16; TEMP 37; O2SAT 97
[2021-09-25] MEDS: risperiDONE 1 MG TABLET PO (08:22)
[2021-09-25] MEDS: clonazePAM 0.5 MG TABLET PO ×2 (08:22→20:05)
[2021-09-25] MEDS: Cyanocobalamin (Vitamin B-12) 1,000 MCG TABLET 1000 MCG PO (08:22)
--- NOTE | 2021-09-25 11:27 | P.PNPSI_ITS ---
Subjective Subjective Date of Service: 09/25/21 Reason For Visit: Paranoia/AH Subjective Notes: Conditional Voluntary Interim History: Patient seen and discussed with team. Pt reports he feels less anxious. He reports less voices in past few days. He denies SI/HI. He reports sleep is better overall except last night that he had acid reflux. He hopes to go home soon Per nursing, pt more visible, social with peers. No behavioral concerns. Medication Compliance: Yes Review of Systems Review of Systems CVS: No c/o chest pain, palpitations, no SOB [employer]: No c/o dizziness, headache GI: No c/o Nausea, Vomiting, diarrhea, constipation or heartburn Yes Unobtainable due to mental condition and Unobtainable due to mental status Mental Status Exam Mental Status Exam Narrative: Appearance: casually groomed, fair hygiene in NAD Behavior:cooperative psychomotor: no agitation or retardation noted Speech:clear, normal rate/rhythm/volume, spontaneous Thought process: linear Thought content: less voices, feeling less anxious and feeling safe. Mood: okay Affect:much calmer today, not in distress SI:none HI:none VH/AH: Denies Delusions: less paranoid delusions, Insight/judgment:poor x 2. Memory/cog: alert, oriented x 3. not formally tested. Diagnostics Vital Signs (24Hr): Vital Signs - 24 hr 09/24/21 20:55 09/25/21 06:00 Temperature 97.6 F 98.6 F Pulse Rate 80 Respiratory Rate 16 16 Blood Pressure 121/78 126/74 Pulse Oximetry 98 97 Oxygen Delivery Method Room Air Room Air BMI result Body Mass Index 30.2 Labs Results: 09/13/21 14:47 09/15/21 07:25 Imaging Radiology Impressions: ITS Impressions Head CT 09/14/21 12:51 IMPRESSION: No acute intracranial pathology. Medications Medications Current Medications Acetaminophen (Acetaminophen 325 Mg Tablet) 650 mg PO Q6H PRN PRN Reason: Headache/Pain Mild Scale (1-3) Last Admin: 09/21/21 19:40 Dose: 650 mg Al Hydroxide/Mg Hydroxide (Magnesium Hydrox/Alum Hydrox 30 Ml Oral.Susp) 30 ml PO Q6H PRN PRN Reason: Heartburn/Nausea Clonazepam (Clonazepam 0.5 Mg Tablet) 0.5 mg PO BID [facility] Last Admin: 09/25/21 08:22 Dose: 0.5 mg Cyanocobalamin (Cyanocobalamin (Vitamin B-12) 1,000 Mcg Tablet) 1,000 mcg PO DAILY [facility] Last Admin: 09/25/21 08:22 Dose: 1,000 mcg Magnesium Hydroxide (Milk Of Magnesia 30 Ml Oral.Susp) 30 ml PO DAILY PRN PRN Reason: Constipation Olanzapine (Olanzapine 5 Mg Tablet) 5 mg PO Q6H PRN PRN Reason: agitation Last Admin: 09/18/21 17:06 Dose: 5 mg Olanzapine (Olanzapine 5 Mg Tablet) 5 mg PO BEDTIME [facility] Last Admin: 09/24/21 21:01 Dose: 5 mg Risperidone (Risperidone 1 Mg Tablet) 1 mg PO BID [facility] Last Admin: 09/25/21 08:22 Dose: 1 mg Trazodone HCl (Trazodone Hcl 100 Mg Tablet) 100 mg PO BEDTIME [facility] Last Admin: 09/24/21 21:01 Dose: 100 mg Trazodone HCl (Trazodone Hcl 50 Mg Tablet) 50 mg PO BEDTIME PRN PRN Reason: sleep Allergies Allergies Allergy/AdvReac Type Severity Reaction Status Date / Time No Known Allergies Allergy Verified 09/13/21 19:39 Assessment & Plan Assessment & Plan (1) Psychosis: Status: Acute Code(s): F29 - Unspecified psychosis not due to a substance or known physiological condition Plan Mr. Henriquez is a 31 year-old male with hx of Autism Disorder- mostly on concerta for ADHD. Hx of explosive behaviors as child but this have resolved since he was 17 years old. He lives with his mother. In the past 2 months he started to experience a combination of AH, paranoid delusions of friend trying to him and able to read his thoughts. Delusions and psychosis have increase to the point that in last week pt has hold a knife to his neck twice stating he can't take the voices any more. He has also banged his head against the wall trying to stop the voices day prior to being brought to the hospital and he has grabbed his mother's shoulder, shaking her telling her that she has been brain washed by friend who he belives is trying to kill him. Pt does have significant family hx of psychiatric illness including psychosis. However, given that this is first episode, will add head CT as medical work up. His utox is negative and both pt and family denied that pt has hx of substance use. PLAN continue current treatment plan head CT is NORMAL CV 15 min checks Olanzapine to 10mg po BID, Stop concerta as at this point stimulant will worsen psychosis. 09/17: increase zyprexa to 15 mg BID for psychotic and delusional thought process 09/18 continue zyprexa 15mg po BID 09/19, will switch to risperidone as minimal improvement with olanzapine. start risperidone 1 mg po BID, continue olanzapine 15mg po qhs. 09/20 continue current medications. 09/21 continue current medications, pt is now on risperdal 1 mg BID, pt now denies AH, continues to endorse paranoid delusion 09/22 Pt reports benefit on risperdal, no med changes, pt is delusional but denies AH and is in behavioral control, sleeping 09/23 decrease zyprexa to 10 mg QHS to cross taper with risperdal 09/25 continue current medications. I spent minutes with the patient and/or on the patient floor today, greater than?50% of which was spent counseling/coordinating care. Reason for contiued inpatient stay Substantial Risk for: harm to self
[2021-09-25] MEDS: OLANZapine 5 MG TABLET PO (20:05)
[2021-09-25] MEDS: risperiDONE 2 MG TABLET PO (20:05)
[2021-09-25] MEDS: traZODone HCL 100 MG TABLET PO (20:05)
[2021-09-25 20:09] VITALS: BP 113/73; PULSE 104; RESP 16; TEMP 36.7; O2SAT 95
[2021-09-25] MEDS: Magnesium Hydrox/Alum Hydrox 30 ML ORAL.SUSP PO (22:55)
[2021-09-26 08:15] VITALS: BP 119/64; PULSE 99; RESP 17; TEMP 36.7; O2SAT 97
[2021-09-26] MEDS: clonazePAM 0.5 MG TABLET PO ×2 (08:20→20:05)
[2021-09-26] MEDS: Cyanocobalamin (Vitamin B-12) 1,000 MCG TABLET 1000 MCG PO (08:20)
[2021-09-26] MEDS: risperiDONE 1 MG TABLET PO (08:20)
--- NOTE | 2021-09-26 17:48 | P.PNPSI_ITS ---
Subjective Subjective Date of Service: 09/26/21 Reason For Visit: Paranoia/AH Interim History: pt calm and cooperative. feeling well and ready for discharge. no complaints or requests. per staff, attending groups. eating, sleeping, napping. watching TV and playing chess. planned for friday DC. denies anx/dep/SI/HI. Mental Status Exam Mental Status Exam Narrative: Appearance: casually groomed, fair hygiene in NAD Behavior:cooperative psychomotor: no agitation or retardation noted Speech:clear, normal rate/rhythm/volume, spontaneous Thought process: linear Thought content: less voices, feeling less anxious and feeling safe. Mood: okay Affect:much calmer today, not in distress SI:none HI:none VH/AH: Denies Delusions: less paranoid delusions, Insight/judgment:poor x 2. Memory/cog: alert, oriented x 3. not formally tested. Diagnostics Vital Signs (24Hr): Vital Signs - 24 hr 09/25/21 20:09 09/26/21 08:15 Temperature 98.1 F 98.1 F Pulse Rate 104 H 99 Respiratory Rate 16 17 Blood Pressure 113/73 119/64 Pulse Oximetry 95 97 Oxygen Delivery Method Room Air Room Air BMI result Body Mass Index 30.2 Labs Results: 09/13/21 14:47 09/15/21 07:25 Imaging Radiology Impressions: ITS Impressions Head CT 09/14/21 12:51 IMPRESSION: No acute intracranial pathology. Medications Medications Current Medications Acetaminophen (Acetaminophen 325 Mg Tablet) 650 mg PO Q6H PRN PRN Reason: Headache/Pain Mild Scale (1-3) Last Admin: 09/21/21 19:40 Dose: 650 mg Al Hydroxide/Mg Hydroxide (Magnesium Hydrox/Alum Hydrox 30 Ml Oral.Susp) 30 ml PO Q6H PRN PRN Reason: Heartburn/Nausea Last Admin: 09/25/21 22:55 Dose: 30 ml Clonazepam (Clonazepam 0.5 Mg Tablet) 0.5 mg PO BID [facility] Last Admin: 09/26/21 08:20 Dose: 0.5 mg Cyanocobalamin (Cyanocobalamin (Vitamin B-12) 1,000 Mcg Tablet) 1,000 mcg PO DAILY [facility] Last Admin: 09/26/21 08:20 Dose: 1,000 mcg Magnesium Hydroxide (Milk Of Magnesia 30 Ml Oral.Susp) 30 ml PO DAILY PRN PRN Reason: Constipation Olanzapine (Olanzapine 5 Mg Tablet) 5 mg PO Q6H PRN PRN Reason: agitation Last Admin: 09/18/21 17:06 Dose: 5 mg Olanzapine (Olanzapine 5 Mg Tablet) 5 mg PO BEDTIME [facility] Last Admin: 09/25/21 20:05 Dose: 5 mg Risperidone (Risperidone 1 Mg Tablet) 1 mg PO DAILY [facility] Last Admin: 09/26/21 08:20 Dose: 1 mg Risperidone (Risperidone 2 Mg Tablet) 2 mg PO BEDTIME [facility] Last Admin: 09/25/21 20:05 Dose: 2 mg Trazodone HCl (Trazodone Hcl 100 Mg Tablet) 100 mg PO BEDTIME [facility] Last Admin: 09/25/21 20:05 Dose: 100 mg Trazodone HCl (Trazodone Hcl 50 Mg Tablet) 50 mg PO BEDTIME PRN PRN Reason: sleep Allergies Allergies Allergy/AdvReac Type Severity Reaction Status Date / Time No Known Allergies Allergy Verified 09/13/21 19:39 Assessment & Plan Assessment & Plan (1) Psychosis: Status: Acute Code(s): F29 - Unspecified psychosis not due to a substance or known physiological con dition Plan Mr. Henriquez is a 31 year-old male with hx of Autism Disorder- mostly on concerta for ADHD. Hx of explosive behaviors as child but this have resolved since he was 17 years old. He lives with his mother. In the past 2 months he started to experience a combination of AH, paranoid delusions of friend trying to him and able to read his thoughts. Delusions and psychosis have increase to the point that in last week pt has hold a knife to his neck twice stating he can't take the voices any more. He has also banged his head against the wall trying to stop the voices day prior to being brought to the hospital and he has grabbed his mother's shoulder, shaking her telling her that she has been brain washed by friend who he belives is trying to kill him. Pt does have significant family hx of psychiatric illness including psychosis. However, given that this is first episode, will add head CT as medical work up. His utox is negative and both pt and family denied that pt has hx of substance use. PLAN continue current treatment plan head CT is NORMAL CV 15 min checks Olanzapine to 10mg po BID, Stop concerta as at this point stimulant will worsen psychosis. 09/17: increase zyprexa to 15 mg BID for psychotic and delusional thought process 09/18 continue zyprexa 15mg po BID 09/19, will switch to risperidone as minimal improvement with olanzapine. start risperidone 1 mg po BID, continue olanzapine 15mg po qhs. 09/20 continue current medications. 09/21 continue current medications, pt is now on risperdal 1 mg BID, pt now denies AH, continues to endorse paranoid delusion 09/22 Pt reports benefit on risperdal, no med changes, pt is delusional but denies AH and is in behavioral control, sleeping 09/23 decrease zyprexa to 10 mg QHS to cross taper with risperdal 09/24 decrease zyprexa to 5 mg QHS and monitor for AH 09/26: no change in mgmt. pt feels things are going really well. I spent __20____ minutes with the patient and/or on the patient floor today, greater than?50% of which was spent counseling/coordinating care. Reason for contiued inpatient stay Substantial Risk for: inability to function and rapid decompensation
[2021-09-26] MEDS: risperiDONE 2 MG TABLET PO (20:05)
[2021-09-26] MEDS: OLANZapine 5 MG TABLET PO (20:05)
[2021-09-26] MEDS: traZODone HCL 100 MG TABLET PO (20:05)
[2021-09-26 20:09] VITALS: BP 123/71; PULSE 105; RESP 16; TEMP 36.6; O2SAT 97
[2021-09-27 08:04] VITALS: BP 117/58; PULSE 88; RESP 15; TEMP 36.2; O2SAT 99
[2021-09-27] MEDS: Cyanocobalamin (Vitamin B-12) 1,000 MCG TABLET 1000 MCG PO (08:05)
[2021-09-27] MEDS: clonazePAM 0.5 MG TABLET PO (08:06)
[2021-09-27] MEDS: risperiDONE 1 MG TABLET PO (08:06)
[2021-09-27 08:57] VITALS: BMI 31.3
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
[2021-09-27 13:40] VITALS: PULSE 122; RESP 20; O2SAT 98
--- NOTE | 2021-09-27 13:47 | PC.NURSE ---
Pt stating he feels as though some of his lunch is lodged in his throat. Pt was observed to be able to speak and does not appear in respiratory distress at this time. SP02 98%. T/w got pt some water and pt has not been successful in swallowing the water. Repeatedly noted attempting to vomit in his room and out in dining room. Provider aware.
--- NOTE | 2021-09-27 14:29 | PC.NURSE ---
Order for swallow eval placed by provider, speech pathologists notified for need for swallow eval. No response on [place] from speech pathologists. Pt continues to remain stable, frequently spitting into the trash and clearing his throat. Pt able to speak in full sentences, no acute respiratory distress noted at this time.
--- NOTE | 2021-09-27 14:59 | PC.NURSE ---
Per speech, it is ok for pt to continue to take small sips of fluids as tolerated. Speech will not be able to eval pt until after 4:30. Pt aware, educated to take small sips, and no eating until he is cleared by speech. Pt continues to be in no distress at this time, slightly irritable can't I just throw it up .
[2021-09-27 20:45] VITALS: BP 136/60; PULSE 120; TEMP 36.3; O2SAT 96
[2021-09-27] MEDS: risperiDONE 2 MG TABLET PO (20:46)
[2021-09-27] MEDS: traZODone HCL 100 MG TABLET PO (20:46)
[2021-09-27] MEDS: Magnesium Hydrox/Alum Hydrox 30 ML ORAL.SUSP PO (22:51)
[2021-09-28 08:15] VITALS: BP 113/58; PULSE 101; RESP 16; TEMP 36.6; O2SAT 99
[2021-09-28] MEDS: Cyanocobalamin (Vitamin B-12) 1,000 MCG TABLET 1000 MCG PO (08:20)
[2021-09-28] MEDS: risperiDONE 1 MG TABLET PO (08:20)
[2021-09-28] MEDS: Milk of Magnesia 30 ML ORAL.SUSP PO (08:24)
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
== END 2021-09-28 16:28 | disposition home health service (06) | DRG 751 ==
LOC: HO.ED 16:51 → HO.PADLT16 09-14 15:39
PROVIDERS: Physician Assistant; Admitting Provider Social Worker; Emergency Provider Emergency Medicine Emergency Medical Services; Visit Provider Social Worker
DX: F29 Unspecified psychosis not due to a substance or known physiological condition (principal); F84.0 Autistic disorder; Z20.822 Contact with and (suspected) exposure to COVID-19; Z79.899 Other long term (current) drug therapy
CPT/HCPCS: 36415; 70450; 80048; 80053; 80061; 80076; 80307; 82077; 82607; 82746; 83036; 83735; 84443; 85025; 87635; 93005; 96372; 99285

== ENCOUNTER 2024-03-13 07:08 | Outpatient (REF) | payer OTHER, SELFPAY ==
[2024-03-13 07:24] LABS: MANUAL DIFF FLAG NO
[2024-03-13 07:55] LABS: Basophils Absolute Auto 0.1 X10*3/uL (0.0-0.2); Basophils Percent Auto 0.7 % (0-2); Eosinophils Absolute Auto 0.2 X10*3/uL (0.0-0.4); Eosinophils Percent Auto 2.8 % (0-4); Hematocrit 41.9 % (42.0-52.0); Hemoglobin 13.8 g/dl (14.0-18.0); Imm Gran Abs Auto 0.03 X10*3/uL (0.00-0.03); Imm Gran Pct Auto 0.4 % (0.0-0.4); Lymphocytes Absolute Auto 2.3 X10*3/uL (1.2-4.9); Lymphocytes Percent Auto 29.8 % (20-40); Mean Corpuscular HGB Conc 32.9 g/dl (31.0-36.0); Mean Corpuscular Hemoglobin 29.3 pg (27.0-33.0); Mean Platelet Volume 10.6 fL (9.4-12.4); Monocytes Absolute Auto 0.5 X10*3/uL (0.1-1.2); Monocytes Percent Auto 6.9 % (2-11); Neutrophils Absolute Auto 4.5 x10*3/uL (2.0-8.3); Neutrophils Percent Auto 59.4 % (45-73); Platelet Count 306 X10*3/uL (160-400); Red Blood Count 4.71 X10*6/uL (4.60-5.80); Red Cell Distribution Width 12.6 % (11.0-16.0); White Blood Count 7.6 X10*3/uL (4.8-10.8)
[2024-03-13 08:21] LABS: Alanine Aminotransferase 20 U/L (0-40); Albumin Level 4.2 g/dL (3.5-5.0); Alkaline Phosphatase 87 U/L (39-117); Anion Gap 13 (12-20); Aspartate Amino Transferase 21 U/L (5-37); Bilirubin Total 0.8 mg/dL (0.0-1.0); Blood Urea Nitrogen 8 mg/dL (9-16); Calcium 9.3 mg/dL (8.4-10.2); Carbon Dioxide 28 mmol/L (22-29); Chloride 105 mmol/L (96-108); Cholesterol 173 mg/dL (<200); Estimated Glomerular Filt Rate > 60; Glucose Fasting 91 mg/dL (60-99); HDL Cholesterol 38 mg/dL (>40); LDL Cholesterol Calculated 116 mg/dL (<100); Potassium 3.8 mmol/L (3.3-5.1); Sodium 142 mmol/L (135-145); Total Protein 7.9 g/dL (6.5-8.0); Triglycerides 98 mg/dL (<150)
== END 2024-03-13 07:09 | disposition home or self-care (01) ==
LOC: HO.LAB 07:08
PROVIDERS: PCP Internal Medicine; Visit Provider Nurse Practitioner Psychiatric/Mental Health
DX: Z79.899 Other long term (current) drug therapy (principal)
CPT/HCPCS: 36415; 80053; 80061; 85025